=== PATIENT | male | born 1945 | race Caucasian/White ===

== ENCOUNTER 2016-11-14 15:30 | Inpatient (IN) | payer MEDICARE, OTHER ==
[~2016-11-14] VITALS: Ht 177.8 cm; Wt 77.1 kg
[~2016-11-14 15:30] MED LIST: LISI1TAB9 PO; MOME158. TP; TAMS0.4C98 PO
[2016-11-14 15:33] VITALS: BP 162/79; PULSE 76; RESP 15; O2SAT 97
[2016-11-14 15:49] LABS: BASOPHILS % (AUTO) 0.6 % (0-3); EOSINOPHILS % (AUTO) 2.9 % (0-5); MONOCYTES % (AUTO) 7.6 % (4-12); Mean Corpuscular Hemoglobin 31.6 pg (27.0-35.0); Mean Corpuscular Volume 87.6 fL (81-100); NEUTROPHILS % (AUTO) 57.7 % (40-74); Platelet Count 173 bil/L (150-400)
--- NOTE | 2016-11-14 15:54 | ED.REPORT ---
HPI-Chest Pain 40 and Over Date of Service Nov 14, 2016 ED Provider: Syed Monroe MD Patient is a 71 year old male with a history of hypertension who presents to the ED complaining of intermittent chest tightness for the past two days. Associated symptoms include shortness of breath and pain that radiates down his left arm. The patient reports that the pain started after exerting himself on a long walk and slightly improved after resting. He states that he has experienced similar pain at a less degree over the past three months. The patient has also recently been on vacation, where he has been driving and walking a lot. When asked if he thought if the pain would return after walking briskly down the [place], he states that he does think it would return. He is not currently experiencing any pain. The patient takes daily ASA. Nursing Notes Stated Complaint: CHEST PAIN, SOB/SENT FROM URGENT CARE Chief Complaint: Chest Pain Nursing Notes Reviewed: Yes Allergies: Coded Allergies: No Known Allergies (Verified Allergy, Unknown, 11/06/13) Scheduled Lisinopril / HCTZ 20-12.5 mg (Lisinopril / HCTZ 20-12.5 mg) 1 Each Tablet 2 EACH PO DAILY Tamsulosin (Flomax) 0.4 Mg Capsule 0.4 MG PO DAILY Scheduled PRN Mometasone Furoat/Ammonium Lac (Momexin Combo Pack) 158.4 Gm Combo..pkg 0.1 GM TP DAILY PRN PRN PRN rash General Time Seen by MD: 15:53 Chief Complaint Chest pain Hx Obtained From: Patient Arrived By: Walk-in Sudden in Onset?: Yes Onset Occurred: 2 days ago Symptom Duration: Intermittent Location: : Chest left Quality: Heaviness, Painful Radiation: : Arm left Severity: Current: No pain currently Severity: Maximum: Moderate Similar Sx Previous: Yes Past Medical History Past Medical History Reports: Hypertension Smoking History Never Smoker Social History Other Social History: Good social support, Ambulatory Status Independent Review of Systems Constitutional: Denies: Chills, Fever Respiratory: Reports: Dyspnea on exertion, Shortness of breath, Denies: Non-productive cough Cardiovascular: Reports: Chest pain Musculoskeletal: Reports: Extremity pain (left arm ) Skin: Denies Itching, Denies Rash Neurologic: Denies: Numbness, Weakness Complete sys rev & neg: except as marked. Physical Exam Initial Vital Signs Vital Signs (First) Date Time Temp Pulse Resp B/P Pulse Ox O2 Delivery O2 Flow Rate FiO2 11/14/16 15:33 36.2 76 15 162/79 97 Room Air Initial VS: Reviewed General/Constitutional: Awake, Alert, No acute distress Respiratory / Chest: Atraumatic, Breath sounds NL, Breath sounds = bilat, No respiratory distress Cardiovascular: Heart rate NL, Regular rhythm, Heart sounds NL Abdomen: Atraumatic, Soft, Non-tender Lower Extremity / Pelvis / MS: Atraumatic, Full range of motion Skin: Atraumatic, Color NL, No rash, Warm, Dry Neurologic: Oriented X3, Speech NL Psychiatric: Affect NL, Mood NL Head / Eyes: Atraumatic, Normocephalic, PERRL, EOMI Interpretation & Diagnostics Lab Results Interpretation Result Diagram: 11/14/16 1545 11/14/16 1545 Test 11/14/16 15:45 11/14/16 15:46 White Blood Count 5.2th/mm3 (3.8-10.1) Red Blood Count 4.75mil/mm3 (4.40-5.80) Hemoglobin 15.0g/dL (13.8-17.2) Hematocrit 41.6% (41.0-50.0) Mean Corpuscular Volume 87.6fL (81-100) Mean Corpuscular Hemoglobin 31.6pg (27.0-35.0) Mean Corpuscular Hemoglobin Concent 36.1% (32.0-37.0) Red Cell Distribution Width 12.7% (12.3-15.4) Platelet Count 173bil/L (150-400) Neutrophils (%) (Auto) 57.7% (40-74) Lymphocytes (%) (Auto) 31.2% (14-46) Monocytes (%) (Auto) 7.6% (4-12) Eosinophils (%) (Auto) 2.9% (0-5) Basophils (%) (Auto) 0.6% (0-3) Prothrombin Time 10.5sec (8.1-12.5) Prothromb Time International Ratio 0.98ratio Sodium Level 139mEq/L (134-144) Potassium Level 3.9mEq/L (3.5-5.2) Chloride Level 100mEq/L (97-108) Carbon Dioxide Level 22mmol/L (18-29) Blood Urea Nitrogen 25mg/dL (8-27) Creatinine 0.70mg/dL (0.76-1.27) Estimat Glomerular Filtration Rate 118mL/min (>59) Glucose Level 96mg/dL (60-99) Calcium Level 9.2mg/dL (8.5-10.1) Magnesium Level 2.2mg/dL (1.6-2.6) Total Bilirubin 0.8mg/dL (0.0-1.2) Aspartate Amino Transf (AST/SGOT) 25U/L (0-50) Alanine Aminotransferase (ALT/SGPT) 34U/L (0-44) Alkaline Phosphatase 42U/L (25-160) Troponin T < 0.010ug/L (0.0-0.011) Total Protein 7.5g/dL (6.4-8.4) Albumin 4.8g/dL (3.4-5.0) Hold Parikh Top Tube Received (Received) ECG Interpretation ECG Interpretation: abnormal R-wave progression, early transition Time: 15:45 Interpreted by: ED physician Normal ECG Interpretation: Normal rate (63), Normal sinus rhythm X-Ray Chest Interpretation Chest Xray Interpretation: IMPRESSION: No acute cardiopulmonary disease process. Dictated by: Casi Larsen MD, PhD on 11/14/2016 at 16:32 Approved by: Casi Larsen MD, PhD on 11/14/2016 at 16:33 View: Portable, 1 view Interpretation / Wet Read by: Interpret - Radiologist Re-Eval/Medical Decision Time of Eval: 16:07 Re-Evaluation/Progress Note: Discussed plan to consult cardiology Time of Eval: 16:39 Re-Evaluation/Progress Note: Discussed results and plan for admit. Patient understands and agrees to plan. All questions were addressed. Consultation #1: Referral / Consult Name: Alis Anderson MD Consulted With: Cardiology Call Returned at: 16:32 Pull Worker: Will see patient, Agrees with eval, Agrees with plan Consultation #2: Referral / Consult Name: Gisela Julien DO Consulted With: Hospitalist Call Returned at: 17:10 Pull Worker: Agrees with eval, Agrees with plan, Accepts admit Counseled Regarding: Diagnosis, Lab results, Need for admission Discharge & Departure Primary Impression: Unstable angina Discharge Condition All VS Reviewed: Yes Condition: Stable Referrals: Aaron Kumar MD (PCP) Reece Attestation Portions of this note were transcribed by Ellie Mack. I, Dr. Monroe personally performed the history, physical exam and medical decision-making; I reviewed and confirmed the accuracy of the information in the transcribed note. Signed by: Reece Sevilla, 11/14/16 copies to: Aaron Kumar MD, Kirk H MD Nov 14, 2016 15:54 Ifeoma Mack Nov 14, 2016 16:09 Syed Monroe MD Nov 14, 2016 15:54 Ifeoma Mack Nov 14, 2016 16:09
[2016-11-14 16:07] LABS: INR 0.98 ratio
[2016-11-14 16:15] LABS: TROPONIN T < 0.010 ug/L (0.0-0.011)
[2016-11-14 16:25] LABS: Magnesium 2.2 mg/dL (1.6-2.6)
[2016-11-14 16:27] VITALS: BP 108/57; PULSE 64; RESP 18; O2SAT 96
[2016-11-14] MEDS ORDERED: Heparin 25K Unit/500mL 0.45 NS 25,000 UNIT in IV Premix 1 EACH IV SCH ×2 (16:35→19:15)
[2016-11-14] MEDS ORDERED: Heparin 5,000 Unit/mL Inj IVPUSH ONE (16:35)
[2016-11-14] MEDS ORDERED: Heparin 5,000 Unit/mL Inj IVPUSH PRN ×2 (16:35→19:15)
--- NOTE | 2016-11-14 16:35 | DRSVH ---
PROCEDURE: X-RAY CHEST ONE VIEW, PORTABLE ([id number]) INDICATIONS: CHEST PAIN TECHNIQUE: One view of the chest was acquired. COMPARISON: [facility], CR, XR CHEST 2VW, 11/17/2014, 11:12. FINDINGS: Surgical changes and devices: None. Lungs and pleura: No pleural effusions or pneumothorax. Lungs are clear. Elevation left hemidiaphra gm stable compared to prior examination. Surgical sutures in the left lung base stable compared to pr ior examination no Calcified granuloma in the right midlung is stable. Mediastinum: Mediastinal contours appear normal. Heart size is normal. Bones and chest wall: No suspicious bony lesions. Overlying soft tissues appear unremarkable. IMPRESSION: No acute cardiopulmonary disease process. Dictated by: Casi Larsen MD, PhD on 11/14/2016 at 16:32 Approved by: Casi Larsen MD, PhD on 11/14/2016 at 16:33
[2016-11-14] MEDS ORDERED: Heparin 25K Unit/500mL 0.45 NS 25,000 UNIT in IV Premix 1 EACH IV ONE (17:10)
[2016-11-14] MEDS ORDERED: Ondansetron 2 mg/mL 2 mL Inj IVPUSH PRN (17:10)
[2016-11-14] MEDS ORDERED: Alum-Mag Hydrox-Simeth 30 mL Suspension PO PRN (17:10)
[2016-11-14] MEDS ORDERED: Polyethylene Glycol (PEG) 17 Gm Powder PO PRN (17:10)
--- NOTE | 2016-11-14 19:05 | PCM.HPMED ---
Subjective Date of Service Nov 14, 2016 Primary Provider: Admitting Physician: Gisela Julien DO Primary Care Physician: Aaron Kumar MD Attending Physician: Gisela Julien DO Chief Complaint: Patient is 71-year-old male with health history of hypertension presents with exertional chest pain. History of Present Illness: Per patient, he states significant chest pain with shortness of breath last Sunday while walking with his . He reports that chest pain started after he walked for about 1mile, radiating down to his left arm. Rest slightly improved pain, though continue for about 3-4 hours. The patient denies any palpitation or lightheadedness, or syncope. Patient had several episode like this in the past. Back in 2014 patient had a workup done that includes a MIBI scan which was unremarkable. Most recent (2-3 months) patient had similar symptoms, however it did not pursue any workup. Today per his 's request, he initially went to urgent care for evaluation. EKG is done and showed normal sinus rhythm, however recommended that patient be admitted to the ED for further evaluation. He was given 3 baby aspirin prior to the ED. On interview , patient denies any new shortness of breath or chest pain, lightheadedness or dizziness. He does note some epigastric discomfort, he felt possibly related to acid reflux. Patient denies any history of sleep apnea, however he does endorse snoring and was recommended that he complete a workup for obstructive sleep apnea by primary care physician. In the ED, EKG showing poor R-wave progression, early transition. A call from the ED to ribbon weaver Dr. Anderson, agrees with the plan to start patient on heparin drip and possible catheterization in the morning. Troponin negative x1. Review of Systems: A comprehensive review of systems was conducted with the patient and found to be negative except as above in the History of Present Illness. 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 PERRLA, EOMI, Anicteric sclerae, moist conjunctivae. Neck: No JVD, No bruits. No lymphadenopathy or thyromegaly. Cardiovascular: Regular rate and rhythm with no murmurs, rubs, or gallops appreciated Pulmonary: b/l air sound with no crackles, wheezes, or rhonchi. no use of accessory muscles. Abdomen: +Bowel sound, Soft, nontender, nondistended. Extremities: No clubbing or cyanosis, no lymphedema, no b/l lower leg edema Skin: Normal temperature, turgor, and texture; no rash. No visualized skin ulcer. Neurological: CN II-VII grossly intact, moving equally on all 4 extremities Psychiatric: Normal mood and affect. AOx3 Lab and Diagnostics Result Diagram: 11/14/16 1545 11/14/16 1545 Assessment & Plan Patient 71-year-old male with medical history significant for hypertension presented with unstable angina, admitted for ACS. Unstable angina -Troponin T unremarkable 1 -EKG however, show poor R-wave progression with early transition -Aspirin given, start atorvastatin, lipids panel and LFT ordered in the a.m. -Continues heparin drip -Cardiology consulted -Echocardiogram ordered -Nothing by mouth at midnight for possible catheterization Essential hypertension -Normotensive at this moment -Restart home lisinopril/HCTZ Dyspepsia -Trial famotidine BPH -Restart home tamsulosin CODE STATUS full code DVT prophylaxis: Currently on heparin drip Patient Status: Patient is admitted under observation status with expected length of stay LESS than 2 midnights due to severity of presenting symptoms, risk of adverse event, and complexity of treatment plan. Resuscitation Status: CPR: Attempt Resuscitation Time spent 60 minutes Attending Statement The patient was seen and examined together with Dr. Powell on 11/14/16 and I agree with the history, exam and plan as outlined in the note above. Landen Powell DO Nov 14, 2016 19:05 Gisela Julien DO Nov 16, 2016 20:08
[2016-11-14 19:39] VITALS: BP 102/60; PULSE 60; RESP 20; O2SAT 97
[2016-11-14] MEDS ORDERED: ASPI-973 PO (19:45)
[2016-11-14] MEDS ORDERED: ASCO-412 PO (19:45)
[2016-11-14 19:48] VITALS: PULSE 59
[2016-11-14 21:39] LABS: APPEARANCE,URINE CLEAR (CLEAR,HAZY); COLOR,URINE YELLOW (YELLOW); OCCULT BLOOD,URINE NEGATIVE (NEGATIVE); UROBILINOGEN,URINE NORMAL (NORMAL)
--- NOTE | 2016-11-14 22:00 | PCM.ADCARE ---
Advance Care Planning Note Plan: Date: 11/14/2016 Purpose of encounter: Goals of care Diagnosis: Unstable angina Dyspepsia HTN BPH Parties in attendance: The patient, his , Dr. Julien, Dr. Powell Decisional capacity: Good Plan: The patient is aware of the current diagnosis and would like to continue to be full code. The patient and his understands that this means for chest compressions, intubation, pressors, and all measures involved with CPR. CODE STATUS: Full code Time spent with advanced care planning: Greater than 16 minutes Gisela Julien DO Nov 14, 2016 22:00
[2016-11-15 00:36] VITALS: BP 105/69; PULSE 56; RESP 16; O2SAT 99
[2016-11-15 04:23] LABS: Mean Corpuscular Hemoglobin 31.3 pg (27.0-35.0); Mean Corpuscular Volume 88.7 fL (81-100)
[2016-11-15 04:29] VITALS: BP 94/56; PULSE 54; RESP 16; O2SAT 99
[2016-11-15 04:55] LABS: TROPONIN T 0.01 ug/L (0.0-0.011)
[2016-11-15 05:07] LABS: Magnesium 2.3 mg/dL (1.6-2.6); Phosphorus 3.4 mg/dL (2.5-4.9)
--- NOTE | 2016-11-15 06:35 | NUR ---
Restful Night Pt appeared to have a restful night w/ no complaints of pain/SOB. Heparin gtt continues. Tele SR high 50s-60s. Pt NPO after midnight.
--- NOTE | 2016-11-15 06:37 | NUR ---
Admit Pt admitted at shift change, in no acute distress, admit done per admit nurse. Vitals stable. Pt oriented to room, verbalized understanding to report pain or other symptoms.
[2016-11-15 07:51] VITALS: BP 106/54; PULSE 55; O2SAT 96
[2016-11-15 09:51] VITALS: PULSE 54
--- NOTE | 2016-11-15 10:51 | NUR ---
Social Work: Initial Assessment/Multidisciplinary Rounds D: Per EMR review, pt is a 71 year old male admitted for unstable angina. Pt is Medicare with [employer]; pt has no LTC or VA benefits. PCP is Aaron Kumar MD. NOK is Mariam Packer, , . Advance directives not completed- pt declined info from DRUM STOCK CLERK. Readmit score is low, 04/02. Pt discussed in am rounds. Capacity for self care discussed; no concerns or needs at this time. Pt is ambulating I and is I at baseline with ADLs. DRUM STOCK CLERK met with the patient at bedside. Sw role explained, contact information and d/c planning checklist provided. Pt lives on [address] with his . Pt is I with ADLs, uses no DME and continues to drive. Pt has never had HH or skilled rehab/nursing. Pt lives in a single story home with a loft and two steps to enter. Pt anticipates discharge home with his to transport. At this time no sw needs identified. A: Pt who is I at baseline. P: Evolving; Anticipate pt to discharge home via POV once medically stable. No discharge needs identified at this time. DRUM STOCK CLERK ot continue to follow to assess for unmet d/c needs SALAZAR Pulido Addendum: 11/15/16 at 1056 by ROWAN MARES SS Amended: Links added.
--- NOTE | 2016-11-15 12:57 | CONS ---
[address] [address] CONSULTATION REPORT PATIENT: ANDREE IBARRA : 1945 MR#: [id number] ADMIT: 11/14/2016 JOB ID: [id number] CARDIOLOGY CONSULTATION: DATE OF SERVICE: 11/15/2016 CHIEF COMPLAINT: Chest pain. HISTORY OF PRESENT ILLNESS: The patient is a 71-year-old man with hypertension who comes in to be evaluated for chest discomfort, shortness of breath and left arm discomfort. This patient was in his usual state of health until a few months ago when he noted worsening dyspnea on exertion. Despite this limitation, he was able to do a 5 mile hike [place] with his grandchildren with no issues a month ago. On November 11, the patient was in [place], [place], and went for a walk. He walked 1 mile and developed sudden shortness of breath associated with leg discomfort, numbness in his left forearm, and breathlessness. The symptoms lasted several minutes but resolved during rest. The patient did not want to tell his about this incident because he was afraid it would upset her. However he finally told her what happened yesterday, November 14, 2016. At that time, his recommended urgent evaluation in the emergency department. In the emergency department, his EKG was normal, his troponins were negative, and Cardiology was consulted to assist with management. PAST MEDICAL HISTORY: 1. Hypertension - controlled. 2. 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 3. History of herniated disk with disk removal in 1991. 4. History of impaired fasting glucose. 5. History of colon polyps. 6. History of hematuria attributed to BPH. SOCIAL HISTORY: The patient is retired. He is . He is discharged from the [facility]. He does not smoke. He occasionally drinks rum. FAMILY HISTORY: No heart disease. ALLERGIES: No known drug allergies. MEDICATIONS: Home medications: 1. Aspirin 81 mg daily. 2. Lisinopril 20/12.5 mg 2 tablets daily. 3. Tamsulosin 0.4 mg daily. 4. Eyedrops. REVIEW OF SYSTEMS: The patient denies any gastrointestinal bleeding. Denies sleep apnea but does endorse snoring; was advised to have sleep apnea evaluation in the past but declined. Otherwise, 10 point review of systems is negative. PHYSICAL EXAMINATION: Vital signs: Temperature 36.5, blood pressure 94/56 up to 106/54, pulse 54-56 beats per minute, satting 96% to 99% on room air. Well-nourished man, no apparent distress. Eyes: No scleral icterus. Neck is supple. No lymphadenopathy. No carotid bruits. Heart: Normal S1, S2. No murmurs, rubs, or gallops. Lungs: Clear to auscultation anteriorly. Abdomen is soft, positive bowel sounds. No hepatosplenomegaly. Extremities: Warm and well-perfused. No clubbing, cyanosis, or edema. Skin: No rashes or lesions. LABORATORY DATA: Labs reviewed. They are within normal limits. Lipids: Total cholesterol 141, triglycerides 178, HDL 35, LDL 72. Transaminases are normal. Troponins are negative x3. CBC is normal. CURRENT MEDICATION IN THE HOSPITAL: 1. Lisinopril 20 twice a day. 2. Hydrochlorothiazide 12.5 mg daily. 3. Atorvastatin 40 mg daily. 4. Famotidine 20 mg twice a day. 5. Heparin drip. IMAGING: Chest x-ray showed no acute cardiopulmonary disease. Stress test ordered and pending. Echo ordered and pending. ASSESSMENT AND PLAN: In summary, this is a 71-year-old man with exertional chest pressure without associated troponin changes. The thing that goes against it being heart related is that he was able to unload the trailer upon returning from work and with no chest discomfort and was able to hike around [place] with no chest discomfort. Because of uncertainty about his symptoms, I recommend for him to have a noninvasive ischemic evaluation via graded exercise stress test with myocardial perfusion imaging. Should it test and turn up technician to be abnormal, I am delighted to offer him cardiac catheterization. Thank you very much for the opportunity to evaluate him.
--- NOTE | 2016-11-15 17:04 | DRSVH ---
[facility] [address] [place] [address] Echocardiogram Report Name: ANDREE IBARRA JStudy Mark e: 11/15/2016 Height: 70 in Hospital Exam Location: [facility] Weight: 175 lb Gender: Male BSA: 2.0 m2 : 1945 Age: 71 yrs BP: 106/54 m mHg Reason For Study: UNSTABLE ANGINA Ordering Physician: Performed By: Blaqnuita Rahman Referring Physician: Alis Anderson Interpretation Summary The ejection fraction is estimated to be 55-60%. There is no significant valvular heart disease. Procedure: A two-dimensional transthoracic echocardiogram with color flow and Doppler was performed. The study quality was technically adequate. There is no prior echocardiogram noted for this patient. The patient was in sinus bradycardia with heart rates between 49-54 bpm during the exam. Left Ventricle: The left ventricle is normal in size, wall thickness, and systolic function without any focal wall motion abnormalities. The ejection fraction is estimated to be 55-60%. Assessment of diastolic parameters indicates a relaxation abnormality of the left ventricle, consistent with normal filling pressures. Right Ventricle: The right ventricle is normal in size and function. Atria: Both atria are normal in size. There is no Doppler evidence for an interatrial shunt. Mitral Valve: There is mild mitral annular calcification. There is trace mitral regurgitation. Aortic Valve: The aortic valve is normal in structure and function. There is discrete nodular thickening of the non- coronary cusp. No aortic regurgitation is present. Tricuspid Valve: The tricuspid valve is normal in structure and function. There is a trace or physiologic amount of tricuspid regurgitation. Pulmonary artery pressures cannot be estimated because of the lack of a measurable TR jet velocity. Pulmonic Valve: The pulmonic valve is normal in structure and function. There is a trace or physiologic amount of pulmonic regurgitation. Great Vessels: The aortic root is normal size. The ascending aorta is at the upper limits of normal in size. The aortic arch is normal in size. The inferior vena cava was not visualized. Pericardium/ Pleura There is no pericardial effusion. There is no pleural effusion. MMode/2D Measurements & Calculations LVIDd: 4.7 cm RA long axis LVOT diam: 2.1 cm LVIDs: 3.1 cm LA A2 area: 19.2 cm AoV Opening FS: 33.1 % LA A4 area: 19.6 cm RA area EPSS: 0.32 cm LA length (vol) Ao root diam IVSd: 1.1 cm : 14.6 cm LVPWd: 0.82 cm LA vol: 62.1 ml RA vol asc Aorta Diam LA vol index : 37.2 ml RA Ao Arch Diam (Prox : 31.5 ml/m2 : 18.9 mm2 Trans): 2.9 cm LV yo. diameter/BSA LV sys. diameter/BSA RVD1 (basal) RVD2 (mid): 3.4 cm (cm/m^2): 2.4 (cm/m^2): 1.6 TAPSE: 1.9 cm Doppler Measurements & Calculations Ao V2 max MV E max navarro MV E/A: 0.85 PA V2 max : 150.3 cm/sec : 85.1 cm/sec Med Peak E' Navarro : 91.4 cm/sec Ao max PG MV A max navarro PA mean PG : 9.0 mmHg : 100.5 cm/sec E/E' med: 13.1 Ao mean PG MV P1/2t: 76.5 msec Lat Peak E' Navarro PA Accel Time : 0.19 sec LVOT Max Navarro E/E' lat: 9.3 : 92.1 cm/sec E/e' average KARLENE(I,D): 2.7 cm sev ratio MV dec time MV P1/2t max navarro Ao V2 mean LV V1 max PG : 0.26 sec : 86.2 cm/sec MVA(P1/2t): 2.9 cm2 Ao V2 VTI: 33.8 cm LV V1 VTI KARLENE(V,D): 2.2 cm2 : 25.8 cm PA V2 mean KARLENE indexed to BSA : 60.1 cm/sec (cm^2/m^2): 1.4 Electronically signed by: Bolivar Berger on Reading Physician:11/15/2016 11:55 AM
--- NOTE | 2016-11-15 17:08 | DRSVH ---
PROCEDURE: 1 DAY TREADMILL STRESS TEST Rest and exercise myocardial perfusion SPECT with gated imaging and ejection fraction RADIOPHARMACEUTICAL: 8.4 mCi Tc-99m tetrafosmin IV at rest and 25.1 mCi Tc-99m tetrafosmin IV at peak exercise. [id number] was performed. INDICATIONS: 71 year-old male with chest pain. The patient has hypertension and left lobectomy. TECHNIQUE: Radiopharmaceutical was injected at peak stress test, and also at rest. SPECT images wer e obtained. SPECT myocardial perfusion images were displayed in short axis, horizontal long axis, an d vertical long axis views. Gated images were reviewed using [employer] software. COMPARISON: [place], [place], [facility] PERF SPECT MULT, MIBI, 04/24/2011, 11:11. [place], [place], [place] CARDIAC STRESS TEST EXERCISE, 12/31/2014, 11:38. CARDIAC STRESS: A standard Wade treadmill exercise tolerance test was performed by the patient under the supervision of an attending staff. The patient exercised for 8 minutes and 56 seconds; functional aerobic impai rment (SHASHI) is -20 %. Hemodynamic data: There is normal blood pressure and blunted heart rate response to exercise stress. Patient achieved 75% of maximum predicted heart rate at peak exercise. Symptoms: Patient experienced chest pain (6/10) during exercise. EK-[address] depression at peak exercise in II, III, aVF and V2-6. Frequent PACs. FINDINGS: Raw data: There is good myocardial labeling by radiotracer. No significant motion artifacts. Left ventricle function: Gated images demonstrate normal left ventricle wall thickening. No segment al wall motion abnormality. No transient ischemic dilation. The left ventricle resting end-diastoli c volume is normal. Left ventricle stress ejection fraction is 62%; normal values are above 45%. Myocardial perfusion: There is large, severe, reversible perfusion defect in the septum, consistent with myocardial ischemia. In addition, there is a small, moderately severe, reversible perfusion defe ct in the anterior apex, consistent with myocardial ischemia. Comparison to prior exams: Compared to the last examination of 12/24/2014, the reversible perfusion d efects in the septum and anterior apex are new. IMPRESSION: Abnormal myocardial perfusion images demonstrating 1. A large, severe reversible perfusion defect involving the septum, consistent with myocardial ische talisha. 2. A small, moderately severe, reversible perfusion defect in the anterior apex, consistent with myoc ardial ischemia. 3. Normal left ventricular volume and systolic function. 4. Submaximal exercise with the patient achieving 75% maximum predicted heart rate (target heart rate 85% or greater). The patient had chest pain and diagnostic EKG changes for ischemia during exercise stress. PQRS ATTESTATIONS: Measure 322 - Is this imaging test primarily performed on a low-risk surgery patient for preoperative evaluation within 30 days preceding their low-risk non-cardiac surgery? Low-risk surgery is defined as cardiac or myocardial infarction less than 1%, including (but not limited to) endoscopic pr ocedures, superficial procedures, cataract surgery, and excisional breast surgery: Answer: No Measure 323 - Is this imaging test performed primarily for the monitoring of an asymptomatic patient who had percutaneous coronary intervention on the visit date or within 2 years of the visit date? An swer: No Measure 324 - Is this imaging test performed primarily for the initial detection and risk assessment on an asymptomatic, low coronary heart disease patient? Low CHD risk definition = clinicians should consider the maximum number of available patient factors used to estimate risk based on [place] (A TP III criteria), typically age, gender, diabetes, smoking status, and use of blood pressure medicati on, and integrate age appropriate estimates for missing elements, such as LDL or standard blood press ure. Answer: No Dictated by: Joan Tidwell M.D. on 11/15/2016 at 16:46 Approved by: Joan Tidwell M.D. on 11/15/2016 at 17:05
--- NOTE | 2016-11-15 18:26 | NUR ---
Case Management: RACHEL explained to patient and family at 1810, all questions answered. Signed original placed in chart, copy given to patient. Tiffani Andrade RN
--- NOTE | 2016-11-15 18:57 | NUR ---
Uneventful shift. Pt at stress test for afternoon. Pt is up independent in room. Gait is steady. Pt uses call light appropriately and is cooperative with all cares. and daughter at bedside. Pt requested bath supplies and is bathing independently. NPO at midnight for heart catheter procedure in the morning.
--- NOTE | 2016-11-15 19:08 | NUR ---
Case Management: COS to IP. IMM explained to patient at 1900, all questions answered. Signed original placed in chart, copy given to patient. Tiffani Andrade RN
[2016-11-15 20:01] VITALS: BP 115/65; PULSE 56; RESP 18; O2SAT 98
--- NOTE | 2016-11-15 20:28 | PCM.PNMED ---
Subjective Date of Service Nov 15, 2016 Subjective Subjective: Patient continues to be free of chest pain, states he has no symptoms at this time. Events Overnight: No acute events overnight. ROS: Denies fever/chills, nausea/vomiting, headache, weakness, abdominal pain, chest pain, shortness of breath, increased swelling in hands or feet. Exam Vital Signs Vital Sign - Last Date Time Temp Pulse Resp B/P Pulse Ox O2 Delivery O2 Flow Rate FiO2 11/15/16 20:01 36.6 56 18 115/65 98 Room Air Intake and Output 11/14/16 11/14/16 11/15/16 Cumulative From/Thru 15:00 23:00 07:00 11/14/16 15:33 - 11/15/16 06:34 Intake Total 226 ml 226 ml Balance 226 ml 226 ml IV Total 226 ml 226 ml Exam General: No acute distress, well-developed, well-nourished Head: Normocephalic, atraumatic. External ears without defect. Eyes: Pupils equal, round, and reactive to light and accommodation. Anicteric sclerae, moist conjunctivae. Neck: Normal range of motion, no lymphadenopathy noted Cardiovascular: Regular rate and rhythm with no murmurs, rubs, or gallops appreciated Pulmonary: Clear to auscultation bilaterally with no crackles, wheezes, or rhonchi. Normal respiratory effort with no use of accessory muscles. Abdomen: Bowel tones present. Soft, nontender, nondistended. Extremities: No clubbing, cyanosis, edema Skin: Normal temperature, turgor, and texture; no rash, ulcers, or subcutaneous nodules appreciated. Neurological: Cranial nerves grossly intact. Reflexes, coordination, and sensory function within normal limits. Normal muscle strength, tone, and bulk. Psychiatric: Normal mood and affect. Alert and oriented to person, place, and time IVs and Medications Medications Reviewed: Medications were reviewed in detail Lab and Diagnostics Result Diagram: 11/15/165 11/15/16404 X-Rays, CTs and MRIs X-RAY CHEST ONE VIEW, PORTABLE IMPRESSION: No acute cardiopulmonary disease process. Dictated by: Casi Larsen MD, PhD on 11/14/2016 at 16:32 Approved by: Casi Larsen MD, PhD on 11/14/2016 at 16:33 Cardiac Echo Impressions Echocardiogram Interpretation Summary The ejection fraction is estimated to be 55-60%. There is no significant valvular heart disease. Electronically signed by: Bolivar Berger on Reading Physician:11/15/2016 11:55 AM Additional Diagnostics 1 DAY TREADMILL STRESS TEST IMPRESSION: Abnormal myocardial perfusion images demonstrating 1. A large, severe reversible perfusion defect involving the septum, consistent with myocardial ischemia. 2. A small, moderately severe, reversible perfusion defect in the anterior apex , consistent with myocardial ischemia. 3. Normal left ventricular volume and systolic function. 4. Submaximal exercise with the patient achieving 75% maximum predicted heart rate (target heart rate 85% or greater). The patient had chest pain and diagnostic EKG changes for ischemia during exercise stress. Dictated by: Joan Tidwell M.D. on 11/15/2016 at 16:46 Approved by: Joan Tidwell M.D. on 11/15/2016 at 17:05 Assessment & Plan Patient 71-year-old male with medical history significant for hypertension presented with unstable angina, admitted for ACS. Unstable angina -Troponin T unremarkable 1 -EKG: poor R-wave progression with early transition -Aspirin, atorvastatin, -Cardiology consulted, Dr. Anderson following -Echocardiogram shows no acute disease -Stress test abnormal with significant ST changes with exertion other findings as above -NPO at midnight for possible catheterization Essential hypertension -Normotensive at this moment -Restart home lisinopril/HCTZ Dyspepsia -Trial famotidine BPH -Restart home tamsulosin CODE STATUS full code DVT prophylaxis: Subcutaneous heparin Disposition: Patient to discharge post catheterization 1-2 days VTE Prophylaxis: Sub-Q Heparin (Unfractionated) Resuscitation Status: CPR: Attempt Resuscitation Time spent 30 minutes Attending Statement I have seen and evaluated patient at bedside in addition to directly supervising care provided by resident physician Dr La on 11/15/2016. I agree with above documentation. Pt subsequently found to have significant reversible ischemia noted on stress testing. Will peruse cardiac cath at this time by DR Anderson. Kevon La DO Nov 15, 2016 20:28 [place] DO Nov 16, 2016 07:58
[2016-11-16] VITALS (21 sets, daily range): BP systolic 98–154; BP diastolic 63–93; PULSE 51–75; RESP 12–24; O2SAT 98–100
[2016-11-16] MEDS: Heparin 5,000 Unit/mL Inj SUBQ SCH ×2 (00:34→07:57)
--- NOTE | 2016-11-16 03:47 | NUR ---
Tele/IV A&O x 3 using call light appropriately,independent to toilet, room air , Saline locked x 2 Placed second IV , 20 Ga in left forearm. 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
[2016-11-16 06:04] LABS: Mean Corpuscular Hemoglobin 31.7 pg (27.0-35.0); Mean Corpuscular Volume 88.7 fL (81-100)
[2016-11-16 06:59] LABS: TROPONIN T 0.01 ug/L (0.0-0.011)
--- NOTE | 2016-11-16 07:57 | NUR ---
Held Medications Held BP medication and diuretic for low blood pressure 98/63, prior to roving tester laboratory procedure.
[2016-11-16] MEDS ORDERED: 0.9% Sodium Chloride 1,000 ML IV ONE (13:04)
--- NOTE | 2016-11-16 13:28 | PCM.PNMED ---
Subjective Date of Service Nov 16, 2016 Subjective Subjective: Patient states that he is feeling well, currently NPO, awaiting catheterization which will be done this afternoon Events Overnight: No acute events overnight. ROS: Denies fever/chills, nausea/vomiting, headache, weakness, abdominal pain, chest pain, shortness of breath, increased swelling in hands or feet. Exam Vital Signs Vital Sign - Last Date Time Temp Pulse Resp B/P Pulse Ox O2 Delivery O2 Flow Rate FiO2 11/16/16 11:53 36.7 51 24 124/72 100 Room Air Intake and Output 11/15/16 11/15/16 11/16/16 Cumulative From/Thru 15:00 23:00 07:00 11/14/16 15:33 - 11/16/16 06:34 Intake Total 0 ml 0 ml 200 ml 426 ml Output Total 800 ml 500 ml 450 ml 1750 ml Balance -800 ml -500 ml -250 ml -1324 ml Intake Oral 0 ml 0 ml 200 ml 200 ml IV Total 226 ml Output Urine Total 800 ml 500 ml 450 ml 1750 ml Exam General: No acute distress, well-developed, well-nourished Head: Normocephalic, atraumatic. External ears without defect. Eyes: Pupils equal, round, and reactive to light and accommodation. Anicteric sclerae, moist conjunctivae. Neck: Normal range of motion, no lymphadenopathy noted Cardiovascular: Regular rate and rhythm with no murmurs, rubs, or gallops appreciated Pulmonary: Clear to auscultation bilaterally with no crackles, wheezes, or rhonchi. Normal respiratory effort with no use of accessory muscles. Abdomen: Bowel tones present. Soft, nontender, nondistended. Extremities: No clubbing, cyanosis, edema Skin: Normal temperature, turgor, and texture; no rash, ulcers, or subcutaneous nodules appreciated. Neurological: Cranial nerves grossly intact. Reflexes, coordination, and sensory function within normal limits. Normal muscle strength, tone, and bulk. Psychiatric: Normal mood and affect. Alert and oriented to person, place, and time IVs and Medications Medications Reviewed: Medications were reviewed in detail Lab and Diagnostics Result Diagram: 11/16/16 0540 11/16/16 0540 X-Rays, CTs and MRIs X-RAY CHEST ONE VIEW, PORTABLE IMPRESSION: No acute cardiopulmonary disease process. Dictated by: Casi Larsen MD, PhD on 11/14/2016 at 16:32 Approved by: Casi Larsen MD, PhD on 11/14/2016 at 16:33 Cardiac Echo Impressions Echocardiogram Interpretation Summary The ejection fraction is estimated to be 55-60%. There is no significant valvular heart disease. Electronically signed by: Bolivar Berger on Reading Physician:11/15/2016 11:55 AM Additional Diagnostics 1 DAY TREADMILL STRESS TEST IMPRESSION: Abnormal myocardial perfusion images demonstrating 1. A large, severe reversible perfusion defect involving the septum, consistent with myocardial ischemia. 2. A small, moderately severe, reversible perfusion defect in the anterior apex , consistent with myocardial ischemia. 3. Normal left ventricular volume and systolic function. 4. Submaximal exercise with the patient achieving 75% maximum predicted heart rate (target heart rate 85% or greater). The patient had chest pain and diagnostic EKG changes for ischemia during exercise stress. Dictated by: Joan Tidwell M.D. on 11/15/2016 at 16:46 Approved by: Joan Tidwell M.D. on 11/15/2016 at 17:05 Assessment & Plan Patient 71-year-old male with medical history significant for hypertension presented with unstable angina, admitted for ACS. Unstable angina -Troponin T unremarkable 4 -EKG: poor R-wave progression with early transition -Aspirin, atorvastatin -Cardiology consulted, Dr. Anderson following -Echocardiogram shows no acute disease -Stress test abnormal with significant ST changes with exertion other findings as above -Catheterization to be completed on 11/16 per cardiology Essential hypertension -Normotensive at this moment -Restart home lisinopril/HCTZ Dyspepsia -Trial famotidine BPH -Restart home tamsulosin CODE STATUS full code DVT prophylaxis: Subcutaneous heparin Disposition: Patient to discharge post catheterization 1-2 days VTE Prophylaxis: Sub-Q Heparin (Unfractionated) Resuscitation Status: CPR: Attempt Resuscitation Time spent 25 minutes Attending Statement I have seen and evaluated the patient at bedside in addition to directly supervising care provided by Dr La on 11/16/2016. I agree with above documentation. Kevon La DO Nov 16, 2016 13:28 [place] DO Nov 17, 2016 07:22
--- NOTE | 2016-11-16 13:34 | PROG NOTE ---
[address] [address] PROGRESS NOTE PATIENT: ANDREE IBARRA : 1945 MR#: [id number] ADMIT: 11/14/2016 JOB ID: [id number] DATE: 11/16/2016 SUBJECTIVE: Overnight patient had no chest pain. However, he had chest discomfort during his graded exercise stress test with myocardial perfusion imaging. Briefly the patient had moderate risk stress test and anticipates having cardiac catheterization later today. PHYSICAL EXAMINATION: Vital signs: Temperature 36.7, blood pressure 98/63 up to 124/72, pulse 51 up to 61 beats per minute. Satting 98%-100% on room air. Well-nourished, very pleasant man, no apparent distress. Eyes: No scleral icterus. Heart: Normal S1, S2. No murmurs, rubs or gallops. Lungs: Clear to auscultation anteriorly. Abdomen: Soft, positive bowel sounds. No hepatosplenomegaly. Extremities: Warm, well perfused. No clubbing, cyanosis or edema. He has somewhat pale complexion with some erythematous scaly patches on his face that look most consistent with seborrheic dermatitis. The right common femoral artery examination demonstrates intact right common femoral artery pulsation with no evidence of bruit. LABORATORIES: Were reviewed. A CBC is normal. Significant for mildly reduced platelet count of 139, creatinine 0.8, potassium 4.3. Transaminases are normal. Troponin T is negative. Review of echocardiogram November 15, 2016 demonstrated normal study, EF 55%-60%. No focal wall motion abnormality seen. Graded exercise stress test with myocardial perfusion imaging performed yesterday demonstrated a good exercise capacity. The patient walked on Wade protocol for 8 minutes and 56 seconds with functional aerobic impairment index of -20%. During the stress test, the patient developed dynamic [address]-depression in leads II, III, aVF, V2, V3, V4, V5 and V6. He also experienced 6/10 chest discomfort during exercise which resulted in termination of physical activity. Salvador treadmill score is -9 consistent with a highly abnormal study. On personal review, he had a large sized moderate intensity anterior perfusion defect extending from mid anterior to distal anterior segment. Compared to prior study, the anterior perfusion defect is newly appreciated. He had a prior stress test that was performed in March of 2011. At that time, the patient walked for 11 minute and 26 seconds. He had no ST depressions at that time during physical activity. Likewise he had no perfusion abnormalities in the past during physical activity. ASSESSMENT AND PLAN: In summary, this is a delightful 71-year-old man with dynamic ST changes during physical activity as well as exertional chest discomfort. I recommend for this patient to undergo invasive evaluation of coronary artery disease. Consent is obtained. All questions answered. Thank you very much for the opportunity to evaluate this patient.
[2016-11-16] MEDS ORDERED: Heparin 1,000 Units/500 mL NS Premix IV ONE (15:40)
[2016-11-16] MEDS ORDERED: Heparin 10,000 Unit/1,000 mL NS Premix IV ONE (15:40)
[2016-11-16] MEDS ORDERED: Heparin 1,000 Unit/mL 10 mL Inj ONE (15:40)
[2016-11-16] MEDS ORDERED: fentaNYL-PF 50 mCg/mL 2 mL Inj ONE (15:56)
--- NOTE | 2016-11-16 16:27 | NUR ---
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 Premedicated with 25mg Benadryl IV. Pt report to [facility]. accompanied pt to [facility].
[2016-11-16] MEDS ORDERED: Atropine 1 mg/10 mL (Code) Syringe IVPUSH PRN (17:30)
[2016-11-16] MEDS ORDERED: Sodium Chloride LOK Flush 10 mL Syringe IVFLUSH PRN (17:30)
[2016-11-16] MEDS ORDERED: Ondansetron 2 mg/mL 2 mL Inj IVPUSH PRN (17:30)
[2016-11-16] MEDS ORDERED: 0.9% Sodium Chloride 250 ML BOLUS IV PRN (17:30)
[2016-11-16] MEDS ORDERED: 0.9% Sodium Chloride 400 ML (4 HRS) IV ONE (17:30)
[2016-11-16] MEDS ORDERED: Clopidogrel 300 mg Tablet (LOADING DOSE) PO ONE (17:30)
--- NOTE | 2016-11-16 17:32 | CS94 ---
[address] [address] DIAGNOSTIC CARDIAC CATHETERIZATION PATIENT: ANDREE IBARRA : 1945 MR#: [id number] ADMIT: 11/14/2016 JOB ID: [id number] SERVICE DATE: 11/16/2016 PATIENT PRESENTATION: The patient is a delightful 71-year-old man with abnormal stress test who comes in for cardiac catheterization. PROCEDURES PERFORMED: 1. Right common femoral artery access without ultrasound guidance. 2. Right common femoral angiogram. 3. Coronary angiograms. 4. Left ventricular end-diastolic pressure recording. METHOD: Following informed consent the patient was prepped and draped in the usual sterile fashion. A 6-Maltese sheath was placed in the right common femoral artery. Sheath placement was confirmed via femoral angiogram. JL4 and JR4 catheters were used to engage the left main and right coronary artery ostia, respectively. Hand injection and craniocaudal angulation was used to obtain selective coronary angiograms. All exchanges were performed over a wire. Pigtail was advanced in the left ventricle. Left ventricular end-diastolic pressure was recorded. Pigtail was withdrawn from the left ventricle into the aorta under continuous hemodynamic monitoring. FINDINGS: Femoral angiogram: Right common femoral artery gives rise to SFA and profunda. There is moderate plaquing in the superficial femoral artery but it is not hemodynamically significant. The sheath enters the right common femoral artery at the 50th percentile cheri of the femoral head. There is no contrast extravasation or dissection. Coronary angiograms: Left main is a normal caliber vessel, gives rise to LAD and circumflex. No obstructive lesions are seen. There is no dampening on engagement. There is excellent blowback. Left anterior descending: Unfortunately demonstrates a tight proximal 99% LAD lesion. This lesion is located proximal to the first septal tree wrapper and the first diagonal branch. It is best appreciated on CRUZ cranial view. The LAD gives rise to a 1st diagonal branch, 2nd diagonal branch, and multiple septal perforators. Beyond the proximal LAD lesion there are no obstructive lesions present. Circumflex is a nondominant vessel. It gives rise to a medium 1st OM branch and a medium 2nd OM branch. The 1st OM branch is quite proximal and could be described as a ramus. No obstructive lesions are seen in the circumflex. Right coronary artery is a dominant vessel. It gives rise to PDA, RV branch, and a medium posterolateral branch. No obstructive lesions are seen. Left ventricular end-diastolic pressure is 10 mmHg. There is no aortic stenosis based on pullback. IMPRESSION: A 90% proximal LAD lesion, otherwise no obstructive disease. PLAN: Intervention. Thank you very much for the opportunity to participate in this patient's care.
--- NOTE | 2016-11-16 17:46 | DI95 ---
[address] [address] INTERVENTIONAL CARDIAC CATHETERIZATION PATIENT: ANDREE IBARRA : 1945 MR#: [id number] ADMIT: 11/14/2016 JOB ID: [id number] DATE OF SERVICE: 11/16/2016 PROCEDURE: Percutaneous intervention on the LAD. INDICATION: Acute coronary syndrome. PROCEDURAL DETAILS: The reader and the coders are referred to the procedure log for complete details. Briefly, Dr. Anderson performed the diagnostic angiogram. I was asked to do an intervention on the proximal LAD which had a tight 80% to 90% lesion. INTERVENTIONAL REPORT: A run-through wire and a Blaine left catheter were used. The lesion was directly stented with a 3.0 x 18 mm stent delivered at 16 atmospheres with excellent angiographic results. There is a slight step-up distally. There is no dissection. There is good GERSON-3 flow. The patient is advised to stay on Plavix for six months post procedure.
--- NOTE | 2016-11-16 19:40 | NUR ---
Arrived Back to the floor: Pt arrived back to room 2001 at 1927 in stable condition. R groin soft without hematoma; no bleeding or oozing noted at site. Peripheral pulses weak to palpation. Pt denies any chest pain. Will cont. to closely monitor. SR in the 70s noted on the monitor. Pt officially off bedrest.
--- NOTE | 2016-11-16 19:45 | NUR ---
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 Patient denies pain. at bedside. Right groin star close without bleeding or hematoma. Pedal pulse present. Taking PO. HNV. Transferred back to room 2001 at 1900 by bed. Report to receiving RN.
[2016-11-16] MEDS: Sodium Chloride LOK Flush 10 mL Syringe IVFLUSH SCH (22:02)
[2016-11-17] VITALS (7 sets, daily range): BP systolic 111–130; BP diastolic 67–76; PULSE 51–80; RESP 16–20; O2SAT 99
[2016-11-17] MEDS: Sodium Chloride LOK Flush 10 mL Syringe IVFLUSH SCH ×2 (00:30→08:30)
[2016-11-17 06:10] LABS: Mean Corpuscular Hemoglobin 31.6 pg (27.0-35.0); Mean Corpuscular Volume 88.2 fL (81-100)
--- NOTE | 2016-11-17 06:31 | NUR ---
R groin site: Pt stable throughout the night. R groin remained soft without hematoma. Oozing noted to gauze dressing after pt initially got OOB last night. Drainage outlined in ink; minimal amount of drainage exceeded the perimeter during the duration of the night. Pt in a SB in the 50s; no chest pain.
[2016-11-17] MEDS ORDERED: MeTOProlol XL 25 mg ER24 Tablet PO SCH (09:45)
--- NOTE | 2016-11-17 10:45 | PROG NOTE ---
[address] [address] PROGRESS NOTE PATIENT: ANDREE IBARRA : 1945 MR#: [id number] ADMIT: 11/14/2016 JOB ID: [id number] DATE: 11/17/2016 SUBJECTIVE: The patient had a mild episode of left epigastric/left lower chest wall discomfort that lasted about an hour. EKG is ordered and pending. No events were present on tele. He has not ambulated yet up and down the barnes but he plans to do it later today. EKG has been ordered. OBJECTIVE: Vital signs reviewed. PHYSICAL EXAMINATION: Well-nourished man, in no apparent distress. Eyes: No scleral icterus. Heart: Normal S1, S2. No murmurs, rubs or gallops. Lungs clear to auscultation. His abdomen is soft, positive bowel sounds. No hepatosplenomegaly. Extremities: Well perfused. No clubbing, cyanosis or edema. Right common femoral artery vascular access site shows no hematoma and no ecchymosis and no bruits. MEDICATIONS: Reviewed. He is currently on: 1. Aspirin 81 mg daily. 2. Plavix 75 mg daily. 3. Atorvastatin 40 mg daily. 4. Metoprolol succinate 25 mg daily. 5. Tamsulosin. 6. Lisinopril 20 mg daily. 7. Hydrochlorothiazide 12.5 mg daily. ASSESSMENT AND PLAN: In summary, this is a delightful 71-year-old man with unstable angina found to have 99% proximal tubular LAD stenosis status post Resolute 3 mm diameter by 18 mm length drug-eluting stent deployed to proximal LAD. The patient has mild I would say 30%-40% LAD lesion just distal to the shoulder of the distal shoulder of the stent. But, it does not appear to be hemodynamically significant. The plan for this patient is to be discharged home today. He was instructed to adhere to weight lifting instruction, nothing over 10 pounds for 10 days. He will followup in clinic in a month. He was given nitroglycerin obstruction and he will have EKG before he leaves. Thank you very much for the opportunity to evaluate him.
--- NOTE | 2016-11-17 11:56 | NUR ---
Social Work- Readiness for D/C, Multidisciplinary Rounds Data: EMR reviewed. Pt is on day 3 of hospitalization for unstable angina. Pt discussed in multidisciplinary rounds, pt is likely to d/c today after Cardiology clearance. No SW needs identified in rounds. No d/c orders at this time. SW met with pt and at bedside regarding potential d/c. Both confirm d/c plan of home with no needs. Denied any questions or concerns related to d/c. Pt to d/c home with his to transport via POV. Assessment: Pt who is independent at baseline with ADLs and self-care Plan: Pt to d/c home with his to transport via POV. No d/c needs. SALAZAR Belcher
[2016-11-17] MEDS ORDERED: ATOR40TA69 PO (13:18)
[2016-11-17] MEDS ORDERED: CLOP75TA28 PO (13:18)
[2016-11-17] MEDS ORDERED: FAMO20T PO (13:18)
--- NOTE | 2016-11-17 13:33 | PCM.DIMED ---
Kevon La DO 11/17/16 1333: Discharge Instructions Date of Service Nov 17, 2016 Dates of Hospitalization Nov 14, 2016 at 18:16 Discharge Diagnosis Discharge Diagnosis Unstable angina Essential hypertension Dyspepsia BPH Medication Instructions Additional med instructions In addition to your typical home medications we would like you to take: Plavix 75 mg daily Atorvastatin 40mg daily Pepcid 20mg twice per day take 30 min before meals Nitroglycerine every 5minutes as needed for chest pain, come to ER if requiring more than 3. Test Results Test Results A chest Xray shows no acute results Echocardiogram also shows no specific changes Stress test was abnormal showing changes with EKG plus chest pain with abnormal movement of the heart Catheterization showed 90% block of the Left anterior descending artery which was then stented. Diet Discharge Diet: Heart Healthy Activity Discharge Activity: Other (10 lbs for 10 days) Call your provider Call your provider for: Fever or Chills, Shortness of breath, Bleeding, Chest pain, Vomitting, Excessive diarrhea, Weakness (unilateral) Patient Instructions Patient Instructions Please continue at home movement as tolerated. Avoid heavy exertion for the next 2 weeks, however activities that require moderate elevations in heart rate are acceptable as you tolerate them. Continue to take medications as described above. Please return to the ED if symptoms return. Follow-up plan Follow up with primary care within the next week. Follow-up Provider: Aaron Kumar MD Follow-up with PCP in: 1 week Lucho Bay DO 11/17/16 1702: Discharge Instructions Attending's Statement Read and agree Kevon La DO Nov 17, 2016 13:33 Lucho Bay DO Nov 17, 2016 17:02
[2016-11-17] MEDS ORDERED: NITR0.4T SL (13:35)
--- NOTE | 2016-11-17 14:08 | NUR ---
Social Work- Discharge Data: EMR reviewed. Pt is on day 3 of hospitalization for unstable angina. Pt to d/c. D/c orders are active. Pt to d/c home with his to transport via POV. No d/c needs Assessment: Pt who is independent at baseline with ADLs and self-care Plan: Pt to d/c home with his to transport via POV. No d/c needs. Ana Trevizo MSW
--- NOTE | 2016-11-17 15:40 | PCM.DC.MED ---
Discharge Summary Date of Service Nov 17, 2016 Dates of Hospitalization Date of Hospital Admission Nov 14, 2016 at 18:16 Date of Discharge: Nov 17, 2016 Providers: Admitting Physician: Gisela Julien DO Primary Care Physician: Aaron Kmuar MD Attending Physician: Lucho Bay DO Diagnosis at Time of Discharge Diagnosis at Time of Discharge Unstable angina Essential hypertension Dyspepsia BPH Consultations Cardiology: Dr. Anderson Procedures XRay, CTs & MRIs X-RAY CHEST ONE VIEW, PORTABLE IMPRESSION: No acute cardiopulmonary disease process. Dictated by: Casi Larsen MD, PhD on 11/14/2016 at 16:32 Approved by: Casi Larsen MD, PhD on 11/14/2016 at 16:33 ECG 12 Lead All EKG showed normal sinus rhythm with irregularly propagated R-wave. Cardiac Echo Impression Echocardiogram Interpretation Summary The ejection fraction is estimated to be 55-60%. There is no significant valvular heart disease. Electronically signed by: Bolivar Berger on Reading Physician:11/15/2016 11:55 AM Invasive Procedures DIAGNOSTIC CARDIAC CATHETERIZATION IMPRESSION: A 90% proximal LAD lesion, otherwise no obstructive disease. Alis Anderson MD 11/16/16 1631 INTERVENTIONAL CARDIAC CATHETERIZATION INTERVENTIONAL REPORT: A run-through wire and a Blaine left catheter were used. The lesion was directly stented with a 3.0 x 18 mm stent delivered at 16 atmospheres with excellent angiographic results. There is a slight step-up distally. There is no dissection. There is good GERSON-3 flow. The patient is advised to stay on Plavix for six months post procedure. Bolivar Berger MD 11/16/16 1647 Other Diagnostics 1 DAY TREADMILL STRESS TEST IMPRESSION: Abnormal myocardial perfusion images demonstrating 1. A large, severe reversible perfusion defect involving the septum, consistent with myocardial ischemia. 2. A small, moderately severe, reversible perfusion defect in the anterior apex , consistent with myocardial ischemia. 3. Normal left ventricular volume and systolic function. 4. Submaximal exercise with the patient achieving 75% maximum predicted heart rate (target heart rate 85% or greater). The patient had chest pain and diagnostic EKG changes for ischemia during exercise stress. Dictated by: Joan Tidwell M.D. on 11/15/2016 at 16:46 Approved by: Joan Tidwell M.D. on 11/15/2016 at 17:05 Brief History Per history of present illness completed by Dr. Powell: Per patient, he states significant chest pain with shortness of breath last Sunday while walking with his . He reports that chest pain started after he walked for about 1mile, radiating down to his left arm. Rest slightly improved pain, though continue for about 3-4 hours. The patient denies any palpitation or lightheadedness, or syncope. Patient had several episode like this in the past. Back in 2014 patient had a workup done that includes a MIBI scan which was unremarkable. Most recent (2-3 months) patient had similar symptoms, however it did not pursue any workup. Today per his 's request, he initially went to urgent care for evaluation. EKG is done and showed normal sinus rhythm, however recommended that patient be admitted to the ED for further evaluation. He was given 3 baby aspirin prior to the ED. On interview , patient denies any new shortness of breath or chest pain, lightheadedness or dizziness. He does note some epigastric discomfort, he felt possibly related to acid reflux. Patient denies any history of sleep apnea, however he does endorse snoring and was recommended that he complete a workup for obstructive sleep apnea by primary care physician. In the ED, EKG showing poor R-wave progression, early transition. A call from the ED to assistant import manager Dr. Anderson, agrees with the plan to start patient on heparin drip and possible catheterization in the morning. Troponin negative x1. Hospital Course Patient 71-year-old male with medical history significant for hypertension presented with unstable angina, admitted for ACS. Unstable angina - Troponin T unremarkable 4 - EKG: poor R-wave progression with early transition - Continue Aspirin, atorvastatin - Cardiology consulted, Dr. Anderson following - Patient started on Plavix - Nitroglycerin as needed - Echocardiogram shows no acute disease - Stress test abnormal with significant ST changes with exertion other findings as above - Catheterization completed on 11/16 by cardiology, one stent placed in LAD Essential hypertension -Normotensive at this moment -Restart home lisinopril/HCTZ Dyspepsia -Continue famotidine BPH -Restart home tamsulosin CODE STATUS full code Exam Vital Signs (Last) Date Time Temp Pulse Resp B/P Pulse Ox O2 Delivery O2 Flow Rate FiO2 11/17/16 11:35 36.3 63 20 130/67 99 Room Air Exam General: No acute distress, well-developed, well-nourished Head: Normocephalic, atraumatic. External ears without defect. Eyes: Pupils equal, round, and reactive to light and accommodation. Anicteric sclerae, moist conjunctivae. Neck: Normal range of motion, no lymphadenopathy noted Cardiovascular: Regular rate and rhythm with no murmurs, rubs, or gallops appreciated Pulmonary: Clear to auscultation bilaterally with no crackles, wheezes, or rhonchi. Normal respiratory effort with no use of accessory muscles. Abdomen: Bowel tones present. Soft, nontender, nondistended. Extremities: No clubbing, cyanosis, edema Skin: Normal temperature, turgor, and texture; no rash, ulcers, or subcutaneous nodules appreciated. Neurological: Cranial nerves grossly intact. Reflexes, coordination, and sensory function within normal limits. Normal muscle strength, tone, and bulk. Psychiatric: Normal mood and affect. Alert and oriented to person, place, and time Test 11/14/16 15:45 11/14/16 15:46 11/14/16 20:28 11/15/16 04:05 Neutrophils (%) (Auto) 57.7% (40-74) Lymphocytes (%) (Auto) 31.2% (14-46) Monocytes (%) (Auto) 7.6% (4-12) Eosinophils (%) (Auto) 2.9% (0-5) Basophils (%) (Auto) 0.6% (0-3) Prothrombin Time 10.5sec (8.1-12.5) Prothromb Time International Ratio 0.98ratio Hold Parikh Top Tube Received (Received) Urine Color Yellow (YELLOW) Urine Appearance Clear (CLEAR,HAZY) Urine pH 7.0 (5.0-8.0) Urine Specific [place] 1.015 (1.003-1.035) Urine Protein Negativemg/dL (NEG,TRACE) Urine Glucose (UA) Negativemg/dL (NEGATIVE) Urine Ketones Tracemg/dL (NEGATIVE) Urine Occult Blood Negative (NEGATIVE) Urine Nitrite Negative (NEGATIVE) Urine Bilirubin Negative (NEGATIVE) Urine Urobilinogen Normalmg/dL (NORMAL) Urine Leukocyte Esterase Negative (NEGATIVE) Urine RBC 3-10/hpf (0-2) Urine WBC 0-5/hpf (0-5) Urine Epithelial Cells Occasional/hpf (NONE-MOD) Urine Crystals None seen (NONE SEEN) Urine Bacteria Few/hpf (NONE-FEW) Urine Hyaline Casts None/lpf (NONE) Urine Granular Casts None seen (NONE SEEN) Urine Waxy Casts None seen (NONE SEEN) Urine Red Blood Cell Casts None seen (NONE SEEN) Urine White Blood Cell Casts None seen (NONE SEEN) Urine Mucus None seen (None Seen) Urine Trichomonas None seen (NONE SEEN) Urine Yeast None (NONE SEEN) Urinalysis Comment None Urine Culture Reflexed Not indicated Phosphorus Level 3.4mg/dL (2.5-4.9) Magnesium Level 2.3mg/dL (1.6-2.6) Triglycerides Level 170mg/dL (0-149) Cholesterol Level 141mg/dL (100-199) LDL Cholesterol, Calculated 72.000mg/dL (0-99) VLDL Cholesterol 34.000mg/dL HDL Cholesterol 35mg/dL (>39) Cholesterol/HDL Ratio 4.03 (0.0-4.4) Test 11/15/16 10:15 11/16/16 05:40 11/17/16 05:48 Activated Partial Thromboplast Time 47.4sec (22.8-33.0) Troponin T 0.010ug/L (0.0-0.011) White Blood Count 5.7th/mm3 (3.8-10.1) Red Blood Count 4.50mil/mm3 (4.40-5.80) Hemoglobin 14.2g/dL (13.8-17.2) Hematocrit 39.7% (41.0-50.0) Mean Corpuscular Volume 88.2fL (81-100) Mean Corpuscular Hemoglobin 31.6pg (27.0-35.0) Mean Corpuscular Hemoglobin Concent 35.8% (32.0-37.0) Red Cell Distribution Width 12.9% (12.3-15.4) Platelet Count 132bil/L (150-400) Sodium Level 142mEq/L (134-144) Potassium Level 4.5mEq/L (3.5-5.2) Chloride Level 107mEq/L (97-108) Carbon Dioxide Level 23mmol/L (18-29) Blood Urea Nitrogen 30mg/dL (8-27) Creatinine 0.85mg/dL (0.76-1.27) Estimat Glomerular Filtration Rate 95mL/min (>59) Glucose Level 97mg/dL (60-99) Calcium Level 9.0mg/dL (8.5-10.1) Total Bilirubin 1.1mg/dL (0.0-1.2) Aspartate Amino Transf (AST/SGOT) 22U/L (0-50) Alanine Aminotransferase (ALT/SGPT) 31U/L (0-44) Alkaline Phosphatase 37U/L (25-160) Total Protein 6.5g/dL (6.4-8.4) Albumin 4.2g/dL (3.4-5.0) Discharge Medications Discharge Medications Aspirin (Aspirin) 81 Mg Tablet 81 MG PO DAILY (Reported) Atorvastatin Calcium (Atorvastatin Calcium) 40 Mg Tablet 40 MG PO HS Prescribed by: GLENNY MOISE DO Clopidogrel (Clopidogrel) 75 Mg Tablet 75 MG PO DAILY Prescribed by: GLENNY MOISE DO Famotidine (Pepcid) 20 Mg Tablet 20 MG PO BID Prescribed by: GLENNY MOISE DO Lisinopril / HCTZ 20-12.5 mg (Lisinopril / HCTZ 20-12.5 mg) 1 Each Tablet 2 EACH PO DAILY (Reported) Tamsulosin (Flomax) 0.4 Mg Capsule 0.4 MG PO DAILY (Reported) As needed Mometasone Furoat/Ammonium Lac (Momexin Combo Pack) 158.4 Gm Combo..pkg 0.1 GM TP DAILY PRN PRN PRN rash (Reported) Nitroglycerin SL (Nitrostat) 0.4 Mg Tab.subl 0.4 MG SL Q5MIN PRN PRN For Chest Pain IF SBP > 90 Take 1 every 5 minutes as needed for Chest Pain. Do not take more than 3 before going to the ED. Prescribed by: GLENNY MOISE DO Miscellaneous Medications Ascorbic Acid/Ascorbate Sodium (Vit C-Danuta Hips 500 mg Chew Tb) 500 Mg Tab.chew 500 MG PO (Reported) Additional med instructions In addition to your typical home medications we would like you to take: Plavix 75 mg daily Atorvastatin 40mg daily Pepcid 20mg twice per day take 30 min before meals Nitroglycerine every 5minutes as needed for chest pain, come to ER if requiring more than 3. Followup Plan Disposition: Home Follow-up plan Follow up with primary care within the next week. Discharge Diet: Heart Healthy Discharge Activity: Other (10 lbs for 10 days) Patient Instructions Please continue at home movement as tolerated. Avoid heavy exertion for the next 2 weeks, however activities that require moderate elevations in heart rate are acceptable as you tolerate them. Continue to take medications as described above. Please return to the ED if symptoms return. Follow-up Provider: Aaron Kumar MD Follow-up with PCP in: 1 week Time spent 40 minutes Attending Statement I have seen and evaluated patient at bedside, in addition to directly supervising care provided by resident physician Dr Moise. I agree with above documentation. . copies to: Aaron Kumar MD, Adam J DO Nov 17, 2016 15:40 Lucho Bay DO Nov 17, 2016 17:10
--- NOTE | 2016-11-17 16:51 | NUR ---
Discharge Pt discharged to home with transportation by his . Pt's IV dc'd intact, telemetry removed and tech notified. Pt's discharge instructions, new prescriptions, and follow up appointments were reviewed. All questions were answered and pt voiced understanding. Pt's belongings were gathered for transport with pt. Pt was escorted off unit to hospital lobby by RN.
== END 2016-11-17 15:07 | disposition home or self-care (01) | DRG 249 ==
LOC: SED 15:30 → OBSVTOIN 18:16 → PCC 18:16
PROVIDERS: ADMIT Neuromusculoskeletal Medicine & OMM; ATTEND Neuromusculoskeletal Medicine & OMM
PROC: 02703DZ Dilation of Coronary Artery, One Artery with Intraluminal Device, Percutaneous Approach (ICD-10-PCS; principal; 2016-11-16)
PROC: 4A023N7 Measurement of Cardiac Sampling and Pressure, Left Heart, Percutaneous Approach (ICD-10-PCS; 2016-11-16)
PROC: B2111ZZ Fluoroscopy of Multiple Coronary Arteries using Low Osmolar Contrast (ICD-10-PCS; 2016-11-16)
DX: I25.110 Atherosclerotic heart disease of native coronary artery with unstable angina pectoris (principal); I10 Essential (primary) hypertension; R10.13 Epigastric pain; N40.0 Benign prostatic hyperplasia without lower urinary tract symptoms; Z79.82 Long term (current) use of aspirin